=== PATIENT | female | born 1985 | race Caucasian/White ===

== ENCOUNTER 2017-08-11 12:33 | Emergency (ER) | payer MEDICAID, OTHER ==
[~2017-08-11] VITALS: Wt 72.0 kg
[~2017-08-11 12:33] MED LIST: NAPR-260 PO; TRAM50TA2 PO
[2017-08-11] MEDS ORDERED: LIDOCAINE 1% (MDV) 20 ML INJ ONE (13:22)
[2017-08-11] MEDS ORDERED: AZITHROMYCIN 250 MG TAB PO ONE (13:30)
[2017-08-11] MEDS ORDERED: CEFTRIAXONE 250 MG INJ IM ONE (13:30)
[2017-08-11 13:35] LABS: BASOPHILS % 0.3 % (0.0-2.0); EOSINOPHILS # 0.2 10^3/ul (0.0-0.5); EOSINOPHILS % 1.6 % (0.0-7.0); HEMATOCRIT 37.6 % (37.0-47.0); HEMOGLOBIN 12.6 g/dl (12.0-16.0); LYMPHOCYTES # 2.6 10^3/ul (0.8-2.9); LYMPHOCYTES % 26.2 % (15.0-51.0); MEAN CORPUSCULAR HEMOGLOBIN 27.8 pg (29.0-33.0); MEAN CORPUSCULAR HGB CONC 33.5 g/dl (32.0-37.0); MEAN PLATELET VOLUME 9.5 fl (7.4-10.4); MONOCYTE # 0.6 10^3/ul (0.3-0.9); MONOCYTES % 6.3 % (0.0-11.0); NEUTROPHIL # 6.4 10^3/ul (1.6-7.5); NEUTROPHILS % 65.4 % (39.0-77.0); PLATELET COUNT 342 10^3/UL (140-415); RED BLOOD COUNT 4.53 10^6/ul (4.20-5.40); RED CELL DISTRIBUTION WIDTH 14.5 % (11.5-14.5); WHITE BLOOD COUNT 9.7 10^3/ul (4.8-10.8)
[2017-08-11 14:07] LABS: ADD UMIC YES; UR AMORPHOUS CRYSTAL FEW /HPF (NONE SEEN); UR ASCORBIC ACID NEGATIVE (NEGATIVE); UR BACTERIA FEW /HPF (NONE SEEN); UR BILIRUBIN (Dip) NEGATIVE (NEGATIVE); UR BLOOD (Dip) 3+ mg/dL (NEGATIVE); UR CLARITY SLIGHTLY CLOUDY (CLEAR); UR COLOR YELLOW (YELLOW); UR GLUCOSE (Dip) 1+ mg/dL (NEGATIVE); UR KETONES (Dip) NEGATIVE (NEGATIVE); UR LEUKOCYTE ESTERASE (Dip) 2+ Leu/ul (NEGATIVE); UR MUCUS MODERATE /HPF (NONE SEEN); UR NITRITE (Dip) POSITIVE (NEGATIVE); UR RBC > 182 /HPF (0-5); UR SPECIFIC GRAVITY (Dip) 1.018 (1.003-1.030); UR SQUAMOUS EPITHELIAL CELL FEW /HPF (FEW); UR TOTAL PROTEIN (Dip) 2+ mg/dl (NEGATIVE); UR UROBILINOGEN (Dip) NEGATIVE (NEGATIVE)
[2017-08-11 14:16] LABS: ALBUMIN 4.1 g/dl (3.3-4.9); ALBUMIN/GLOBULIN RATIO 1.07; BILIRUBIN,INDIRECT 0.1 mg/dl (0-1.1); BILIRUBIN,TOTAL 0.1 mg/dl (0.2-1.3); CALCIUM 9.7 mg/dl (8.4-10.2); CREATININE 0.66 mg/dl (0.44-1.00); POTASSIUM 3.7 mmol/L (3.5-5.1); TOTAL PROTEIN 7.9 g/dl (6.1-8.1)
--- NOTE | 2017-08-11 14:21 | RADRPT ---
PROCEDURE: CT abdomen and pelvis without contrast. CLINICAL INDICATION: Abdominal pain. TECHNIQUE: CT scan of the abdomen and pelvis without contrast was performed on a multi-slice CT [facility] . Sagittal and coronal reformatted images were obtained from the axial source images. One or more of the following dose reduction techniques were used: - Automated exposure control. - Adjustment of the mA and/or kV according to patient size. - Use of iterative reconstruction technique. DLP 990.97 mGycm. CTDIvol 16.2 mGy COMPARISON: None FINDINGS: The lung bases are clear. There is limited evaluation of the solid viscera from the lack of IV con trast. The kidneys are symmetric bilaterally with no evidence of renal or ureteral calculi. There is no hy dronephrosis or perinephric stranding. There is normal density of the liver with no gross focal lesion or biliary ductal dilatation. The gallbladder is unremarkable without inflammation. The spleen is unremarkable without mass. The adrenal glands are within normal limits without mass. The pancreas is unremarkable without focal lesion or surrounding inflammatory changes. There is no bowel obstruction or focal bowel inflammation. The appendix is unremarkable. There is a moderately fecal filled colon. There is no free air or free fluid. There are no enlarged lymph nod es. The aorta is unremarkable and there is no acute osseous abnormality. There is a multilobular heterogeneous uterus consistent with fibroids with what appears to be a pedu nculated fibroid measuring 6.2 cm extending from the uterine fundus. The adnexal structures are obsc ured. IMPRESSION: No evidence of renal or ureteral calculi or hydronephrosis. No evidence of bowel obstruction or inflammation. There is a fecal filled colon. There is no append icitis. Fibroid uterus is present with a likely pedunculated fibroid that extends superiorly from the uterin e fundus. RPTAT: AA .Lane Kearney MD, MD Date Time Electronically viewed and signed by .Lane Kearney MD, MD on 08/11/2017 14:21 .Jarred/
[2017-08-11] MEDS ORDERED: CEPH-443 PO (14:41)
[2017-08-11] MEDS ORDERED: IBUP-1542 PO (14:42)
--- NOTE | 2017-08-11 14:55 | ERD ---
ER Documentation Chief Complaint Date/Time DATE: 08/11/17 TIME: 14:50 Chief Complaint ABD PAIN X3 DAYS, NO N/V HPI This is a 31-year-old female that presents to the ER with lower abdominal pain for the last 3 days. Pain radiates to her back. Pain has been constant and today has been worse. Pain is throbbing in quality. She tried pain medication that [id number] however did not work. Patient recently had chlamydia, and is worried that she has chlamydia again. Patient took treatment, however her partner did not take the treatment and patient did have unprotected sex with him. She denies any vaginal discharge she denies any urinary frequency or dysuria. ROS 12 point review of systems was done, all negative except per HPI. Medications Home Meds Active Scripts Ibuprofen* (Motrin*) 600 Mg Tab, 600 MG PO Q6, #30 TAB Prov:VIANEY NERI 08/11/17 Cephalexin* (Keflex*) 500 Mg Capsule, 500 MG PO BID for 7 Days, CAP Prov:VIANEY NERI 08/11/17 Tramadol HCl (Tramadol HCl) 50 Mg Tablet, 50 MG PO Q6, #20 TAB Prov:MARY CANTOR DO 06/22/16 Naproxen* (Naprosyn*) 500 Mg Tablet, 500 MG PO BID Y for PAIN AND/OR INFLAMMATION, #30 TAB Prov:MARY CANTOR DO 06/22/16 Allergies Allergies: Coded Allergies: No Known Allergy (Unverified , 06/22/16) PMhx/Soc Hx Neurological Disorder: No Hx Respiratory Disorders: No Hx Cardiac Disorders: No Hx Psychiatric Problems: No Hx Miscellaneous Medical Probl: No Hx Alcohol Use: No Hx Substance Use: No Hx Tobacco Use: No Smoking Status: Never smoker Physical Exam Vitals Vital Signs Date Time Temp Pulse Resp B/P Pulse Ox O2 Delivery O2 Flow Rate FiO2 08/11/17 12:39 98.9 84 18 147/86 98 Physical Exam GENERAL: The patient is well developed and appropriate for usual state of health , in no apparent distress. HEENT: Atraumatic. CHEST: Clear to auscultation bilaterally. There are no rales, wheezes or rhonchi. HEART: Regular rate and rhythm. No murmurs, clicks, rubs or gallops. ABDOMEN: Soft, nondistended, TTP in the lower abdomen. Good bowel sounds. No rebound or guarding. No gross peritonitis. No gross organomegaly or masses. No Reid sign or McBurney point tenderness. BACK: No midline or flank tenderness. NEURO: Alert and oriented. SKIN: The skin is warm and dry. Result Diagram: 08/11/17 1330 08/11/17 1330 Results 24 hrs Laboratory Tests Test 08/11/17 13:20 08/11/17 13:30 Urine Color YELLOW Urine Clarity SLIGHTLY CLOUDY Urine pH 6.0 Urine Specific [place] 1.018 Urine Ketones NEGATIVEmg/dL Urine Nitrite POSITIVEmg/dL Urine Bilirubin NEGATIVEmg/dL Urine Urobilinogen NEGATIVEmg/dL Urine Leukocyte Esterase 2+Sergo/ul Urine Microscopic RBC > 182/HPF Urine Microscopic WBC 70/HPF Urine Squamous Epithelial Cells FEW/HPF Urine Amorphous Crystals FEW/HPF Urine Bacteria FEW/HPF Urine Mucus MODERATE/HPF Urine Hemoglobin 3+mg/dL Urine Glucose 1+mg/dL Urine Total Protein 2+mg/dl White Blood Count 9.710^3/ul Red Blood Count 4.5310^6/ul Hemoglobin 12.6g/dl Hematocrit 37.6% Mean Corpuscular Volume 83.0fl Mean Corpuscular Hemoglobin 27.8pg Mean Corpuscular Hemoglobin Concent 33.5g/dl Red Cell Distribution Width 14.5% Platelet Count 85106^3/UL Mean Platelet Volume 9.5fl Neutrophils % 65.4% Lymphocytes % 26.2% Monocytes % 6.3% Eosinophils % 1.6% Basophils % 0.3% Nucleated Red Blood Cells % 0.0/100WBC Neutrophils # 6.410^3/ul Lymphocytes # 2.610^3/ul Monocytes # 0.610^3/ul Eosinophils # 0.210^3/ul Basophils # 0.010^3/ul Nucleated Red Blood Cells # 0.010^3/ul Sodium Level 140mmol/L Potassium Level 3.7mmol/L Chloride Level 106mmol/L Carbon Dioxide Level 25mmol/L Anion Gap 13 Blood Urea Nitrogen 16mg/dl Creatinine 0.66mg/dl Glucose Level 92mg/dl Calcium Level 9.7mg/dl Total Bilirubin 0.1mg/dl Direct Bilirubin 0.00mg/dl Indirect Bilirubin 0.1mg/dl Aspartate Amino Transf (AST/SGOT) 33IU/L Alanine Aminotransferase (ALT/SGPT) 33IU/L Alkaline Phosphatase 106IU/L Total Protein 7.9g/dl Albumin 4.1g/dl Globulin 3.80g/dl Albumin/Globulin Ratio 1.07 Lipase 66U/L Current Medications Medications (Trade) Dose Ordered Sig/Em Route PRN Reason Start Time Stop Time Status Last Admin Dose Admin Ceftriaxone Sodium (Rocephin) 250 mg ONCE ONCE IM 08/11/17 13:30 08/11/17 13:31 DC 08/11/17 13:37 Azithromycin (Zithromax) 1,000 mg ONCE ONCE PO 08/11/17 13:30 08/11/17 13:31 DC 08/11/17 13:36 Lidocaine (Xylocaine 1% (Mdv) 20 ml) 20 ml STK-MED ONCE .ROUTE 08/11/17 13:22 08/11/17 13:23 DC [place] [id number] Radiology Main Line: [phone] DIAGNOSTIC IMAGING REPORT Patient: KAREN ROMEO : 1985 Age: 31 Sex: F MR #: [id number] DOS: 08/11/17 1305 Ordering MD: VIANEY NERI PA-C Location: [facility] Room/Bed: PROCEDURE: CT abdomen and pelvis without contrast. CLINICAL INDICATION: Abdominal pain. TECHNIQUE: CT scan of the abdomen and pelvis without contrast was performed on a multi-slice CT scanner . Sagittal and coronal reformatted images were obtained from the axial source images. One or more of the following dose reduction techniques were used: - Automated exposure control. - Adjustment of the mA and/or kV according to patient size. - Use of iterative reconstruction technique. DLP 990.97 mGycm. CTDIvol 16.2 mGy COMPARISON: None FINDINGS: The lung bases are clear. There is limited evaluation of the solid viscera from the lack of IV contrast. The kidneys are symmetric bilaterally with no evidence of renal or ureteral calculi. There is no hydronephrosis or perinephric stranding. There is normal density of the liver with no gross focal lesion or biliary ductal dilatation. The gallbladder is unremarkable without inflammation. The spleen is unremarkable without mass. The adrenal glands are within normal limits without mass. The pancreas is unremarkable without focal lesion or surrounding inflammatory changes. There is no bowel obstruction or focal bowel inflammation. The appendix is unremarkable. There is a moderately fecal filled colon. There is no free air or free fluid. There are no enlarged lymph nodes. The aorta is unremarkable and there is no acute osseous abnormality. There is a multilobular heterogeneous uterus consistent with fibroids with what appears to be a pedunculated fibroid measuring 6.2 cm extending from the uterine fundus. The adnexal structures are obscured. IMPRESSION: No evidence of renal or ureteral calculi or hydronephrosis. No evidence of bowel obstruction or inflammation. There is a fecal filled colon. There is no appendicitis. Fibroid uterus is present with a likely pedunculated fibroid that extends superiorly from the uterine fundus. RPTAT: AA .Lane Kearney MD, Date Time Electronically viewed and signed by .Lane Kearney MD, MD on 08/11/2017 14:21 .J/ CC: VIANEY NERI Procedures/MDM Differential diagnosis includes but is not limited to appendicitis, hernia, UTI , constipation, ectopic , ovarian torsion, PID, Mittelschmerz, fibroid. Is a 31-year-old female presents to the ER with lower abdominal pain. Patient does have some fibroids in her uterus, which may be causing the pain in her lower abdomen. Patient treated in the ER for chlamydia and gonorrhea, and her urine was sent for testing. Patient did not complain of any vaginal discharge at this time, denied pelvic pain. Patient does have a urinary tract infection and will be sent home with Keflex. For acute abdomen is low, patient' s abdominal exam is benign, she is afebrile and well-appearing. She is stable for outpatient primary care doctor within 1-2 days or return to ER sooner if symptoms worsen. My medical decision making shared with the patient she understands and agrees with plan. Departure Diagnosis: Primary Impression: Abdominal pain Condition: Stable Patient Instructions: Abdominal Pain Additional Instructions: Call your primary care doctor TOMORROW for an appointment during the next 1-2 days.See the doctor sooner or return here if your condition worsens before your appointment time. VIANEY NERI Aug 11, 2017 14:55
[2017-08-11 15:06] VITALS: BP 109/68; PULSE 79; RESP 18
== END 2017-08-11 15:42 | disposition home or self-care (01) ==
LOC: FTE 12:33
DX: R10.30 Lower abdominal pain, unspecified (principal)
CPT/HCPCS: 74176; 80053; 81001; 83690; 85025; 87591; 96372; J0696; Z7502; Z7610